=== PATIENT | female | born 1940 | race Caucasian/White ===

== ENCOUNTER 2021-09-17 15:52 | Emergency (ER) | payer OTHER, MEDICAID ==
[~2021-09-17] VITALS: Ht 157.5 cm; Wt 70.3 kg
[~2021-09-17 15:52] MED LIST: CETI-55 PO; DOCU100C83 PO; FLUO-402 PO; HYDR1TAB76 PO; LEVO-33 PO; NIFE60TE15 PO; OMEP20EC9 PO; POTA8TAB PO; TRAM50TA3 PO; [UNRECOGNIZED DRUG - CODE] PO
[2021-09-17 15:55] VITALS: BP 142/89
[2021-09-17] MEDS ORDERED: NACL 0.9% 1,000 ML IV SCH (16:00)
[2021-09-17] MEDS ORDERED: KETOROLAC 30 MG/ML VIAL IVP ONE (16:00)
--- NOTE | 2021-09-17 16:05 | NUR ---
BIBA TO BED
[2021-09-17 16:13] LABS: BASOPHILS % (AUTO) 0.1 % (0.0-2.0); EOSINOPHILS # (AUTO) 0.4 K/uL (0-0.4); EOSINOPHILS % (AUTO) 5.2 % (0.0-4.0); HEMATOCRIT 35.1 % (36-48); HEMOGLOBIN 11.9 g/dL (12.0-16.0); LYMPHOCYTES # (AUTO) 1.8 K/uL (2.5-16.5); LYMPHOCYTES % (AUTO) 26.5 % (20.5-51.1); MEAN CORPUSCULAR HEMOGLOBIN 29 pg (27-31); MEAN CORPUSCULAR HGB CONC 34 g/dL (33-37); MEAN CORPUSCULAR VOLUME 86.7 fL (80-94); MONOCYTES # (AUTO) 0.6 K/uL (0.8-1.0); MONOCYTES % (AUTO) 9.1 % (1.7-9.3); NEUTROPHILS % (AUTO) 59.1 % (42.2-75.2); PLATELET COUNT (AUTO) 280 K/uL (140-450); RED BLOOD CELL COUNT(AUTO) 4.05 MIL/uL (4.20-5.40); RED CELL DISTRIBUTION WIDTH 15.3 % (11.6-13.7); WHITE BLOOD COUNT (AUTO) 6.8 K/uL (4.8-10.8)
--- NOTE | 2021-09-17 16:24 | NUR ---
81 Y/O FEMALE PATIENT PRESENTS TO ED WITH NO COMPLAINT. EMS STATES PT HAD ABD PAIN X2 DAYS PER [facility]. [facility] WANTS PT EVALUATED. DENIES N/V/D; SKIN IS PINK/WARM/DRY; AAOX2 NFP; NON AMBULATORY; LUNGS CLEAR BL; HR EVEN AND REGULAR; PT DENIES ANY FEVER, CP, SOB, OR COUGH AT THIS TIME; PATIENT STATES PAIN OF 0/10 AT THIS TIME; VSS; PATIENT POSITIONED FOR COMFORT; HOB ELEVATED; BEDRAILS UP X2; BED DOWN. ER MD MADE AWARE OF PT STATUS. HX: DM, HYPOTHYROID, HTN, DEMENTIA NKA MEDS: SEE LIST
--- NOTE | 2021-09-17 16:27 | NUR ---
PT BROUGHT TO IMAGING
[2021-09-17 16:28] LABS: ALBUMIN 3.4 g/dL (3.4-5.0); ANION GAP 12.5 (8-16); ASPARTATE AMINOTRANSFERASE 22 U/L (15-37); CARBON DIOXIDE 26.7 mmol/L (21-32); CHLORIDE 103 mmol/L (98-107); GLUCOSE 135 mg/dL (74-106); LIPASE 97 U/L (73-393); POTASSIUM 4.2 mmol/L (3.5-5.1); SODIUM SERUM 138 mmol/L (136-145); TOTAL BILIRUBIN 0.3 mg/dL (0.0-1.0); UREA NITROGEN, BLOOD 25 mg/dL (7-18)
--- NOTE | 2021-09-17 16:39 | NUR ---
PT RETURNED FROM IMAGING
[2021-09-17] MEDS ORDERED: KETOROLAC 30 MG/ML VIAL ONE (17:08)
[2021-09-17] MEDS ORDERED: CIPR500T4 PO (17:59)
[2021-09-17] MEDS ORDERED: PHEN-1877 PO (18:29)
--- NOTE | 2021-09-17 18:46 | NUR ---
PT'S DAUGTHER AT BEDSIDE
[2021-09-17 18:52] VITALS: BP 142/89
--- NOTE | 2021-09-17 18:52 | NUR ---
Patient discharged with v/s stable. Written and verbal after care instructions given and explained TO Daughter. Patient A/Ox2 (NFP) and daughter verbalized understanding of instructions. Wheel Chair Assisted with to car. All questions addressed prior to discharge. ID band removed. Patient advised to follow up with PMD. Rx of ciprofloxacin given. Daughter educated on indication of medication including possible reaction and side effects. Opportunity to ask questions provided and answered. Pt had calm demeanor and unlabored breathing, pt able to stand/pivot from wheelchair. pt given paper gown.
== END 2021-09-17 18:52 | disposition home or self-care (01) ==
LOC: MED 15:52
DX: N39.0 Urinary tract infection, site not specified (principal); E11.9 Type 2 diabetes mellitus without complications; I10 Essential (primary) hypertension; F03.90 Unspecified dementia, unspecified severity, without behavioral disturbance, psychotic disturbance, mood disturbance, and anxiety; E06.9 Thyroiditis, unspecified; Z88.5 Allergy status to narcotic agent
CPT/HCPCS: 36415; 80053; 81002; 83690; 85025; 99284; J1885